=== PATIENT | male | born 1935 | race Caucasian/White ===

== ENCOUNTER 2017-03-30 21:52 | Observation (INO) | payer OTHER ==
--- NOTE | ~2017-03-30 | CN ---
Consultation Report [facility] [address] [place]. [address] NAME: IAN LACY : 36 STATUS : ADM Maricruz PAT#: [id number] AGE: 81 ADM/REG DATE : 03/30/17 MR#: [id number] REPORT SERV DATE: 03/31/17 DICTATED BY: JOSETTE FORD DATE: 03/31/17 REPORT STATUS : Draft TRANSCRIBED BY: MODLigia DATE: 03/31/17 NEUROLOGY CONSULTATION DATE OF CONSULTATION: 03/31/2017 REASON FOR CONSULTATION: TIA. HOSPITALIST: Michael Burleson M.D. HISTORY OF PRESENT ILLNESS: The patient is an 81-year-old male, who had an episode of transient aphasia, which occurred approximately three weeks ago. The patient and his had been outside cutting down moderate-size trees. They stopped to take a break and were drinking water when the patient suddenly was unable to get out words. He stated he knew what to say, but he just could not speak. This lasted approximately five minutes. During this time, the patient was alert, he was oriented, he can move all extremities. He denied any numbness or visual changes. After five minutes, his speech came back and he went about his day. Eight or nine days ago, the patient had a sudden onset of left-sided perioral numbness and left-sided numbness of his fingers. He denied any numbness anywhere else on his body. This again lasted about five minutes and then resolved. The night prior to admission, the patient had numbness in his right fingers. He had numbness in all the fingers, but none in the arm or anywhere else. He denied any weakness, he denied any speech trouble, or visual trouble. The patient decided to come in for further evaluation and treatment. When he arrived his blood pressure was somewhat elevated. He was admitted to the Clinical Decision Unit for further evaluation and treatment. His initial CT of the brain came back showing no acute abnormalities, but some old ischemic changes. The patient's blood pressure this morning was running 210/100. PAST MEDICAL HISTORY: Prostate cancer (2012), post radiation; atrial fibrillation (affirmed per loop recorder); chronic kidney disease, stage III; pneumonia which he had in 2014; GERD; proctitis (post radiation); with hematochezia, COPD, hypertension, hyperlipidemia, and basal cell carcinoma. PAST SURGICAL HISTORY: Total left knee arthroplasty, skin graft to the nose for basal cell carcinoma, and bilateral cataract extraction with lens implantation. HOME MEDICATION: Glucosamine chondroitin one tablet with breakfast, nitroglycerin 0.4 mg p.r.n., Protonix 40 mg q.a.m., and Zantac 150 mg b.i.d. ALLERGIES: ADHESIVE TAPE. SOCIAL HISTORY: The patient is . He lives with his . He has two children. He is a remote smoker, quit in 1963. He does not drink alcohol or use illicits. FAMILY HISTORY: The patient's mother at the age of 105 from "old age." His father Consultation Report [address] [address] NAME: IAN LACY : 36 STATUS : ADM Maricruz PAT#: [id number] AGE: 81 ADM/REG DATE : 03/30/17 MR#: [id number] REPORT SERV DATE: 03/31/17 DICTATED BY: JOSETTE FORD DATE: 03/31/17 REPORT STATUS : Draft TRANSCRIBED BY: CHIN DATE: 03/31/17 at age of 76 from an [place]. He has one sister who is 83 and suffers from diabetes. REVIEW OF SYSTEMS: Please refer to HPI for pertinent positives. PHYSICAL EXAMINATION: VITAL SIGNS: The patient is an 81-year-old male, who stands 5 feet 11 inches, weighs 190 pounds. He is afebrile. Heart rate 65, respiratory rate 21, O2 saturations on room air 97%, blood pressure 170/82. NEUROLOGIC: The patient is alert, he is oriented x4, pleasant, communicates appropriately. Pupils are 3 mm. PERRLA. Cranial nerves 2 through 12 are intact. Peripheral vision via confrontation is full in both ocampo. No ataxia with hejhnc-as-tkbs. No asterixis, tremor, or dysmetria. No pronator drift. Upper extremity strength is 5/5. Upper DTRs 2+ on the right, 1+ on the left. No reported sensory deficits. Lower extremities, strength is 5/5. Patellar reflexes 2+. Downgoing toes. No reported sensory deficits. The patient has good locomotion. Gait is non-ataxic. He cannot tandem, but Romberg is negative. NECK: No carotid bruits or JVD. CHEST: Lung sounds are clear. CARDIAC: Regular rate and rhythm at this point. LABORATORY DATA: CBC is normal. BMP normal. INR 1.2. Total cholesterol 177, HDL 47, LDL 102, triglycerides 142. TSH is elevated at 8.9. Chest x-ray, no acute changes. CT of the brain, no acute changes. Echocardiogram and carotid duplex study are pending. NIH stroke scale is 0. ASSESSMENT: 1. Transient ischemic attack, most likely from severe hypertension. At this point, it is imperative to keep the patient's systolic blood pressure down, but around 140-180 mmHg for optimal cerebral perfusion pressure. The patient's Lipitor will be increased to 80 mg at bedtime. His aspirin will be decreased to 81 mg daily, since he has been placed on Eliquis 5 mg b.i.d. Hopefully, the patient's loop recorder is MRI compatible. The company has been called and they are sending information. He will be sent for an MRI if possible. 2. Atrial fibrillation per loop recorder. This is being managed per Cardiology, he is now on Eliquis. 3. Hypertension, the patient is on Altace and he has p.r.n. medications ordered. His systolic blood pressure ideally should be anywhere from 140 to 180 mmHg for cerebral perfusion pressure. 4. Hypothyroidism. Again, this is managed per hospitalist team. Thank you again for including us in consultation. VANESSA/CHIN Consultation Report [address] [place]. [address] NAME: IAN LACY : 36 STATUS : ADM Maricruz PAT#: [id number] AGE: 81 ADM/REG DATE : 03/30/17 MR#: [id number] REPORT SERV DATE: 03/31/17 DICTATED BY: JOSETTE FORD DATE: 03/31/17 REPORT STATUS : Draft TRANSCRIBED BY: CHIN DATE: 03/31/17 Josette Ford DNP, ACNP-BC / [id number] CC: Terrence Oliveira M.D.
--- NOTE | ~2017-03-30 | CN ---
Consultation Report [facility] [address] [place]. [address] NAME: IAN ECHOLS : 37 STATUS : ADM Maricruz PAT#: [id number] AGE: 81 ADM/REG DATE : 03/30/17 MR#: [id number] REPORT SERV DATE: 03/31/17 DICTATED BY: JEREMIAS LEROY DATE: 03/31/17 REPORT STATUS : Draft TRANSCRIBED BY: MODL DATE: 03/31/17 CONSULTATION DATE OF CONSULTATION: 03/31/2017 REASON FOR CONSULTATION: Recurrent TIAs. HISTORY OF PRESENT ILLNESS: Mr. Echols is a pleasant 81-year-old gentleman, who formerly followed with [facility] and was lost to follow up due to insurance changes, with a history of moderate coronary artery disease (no history of intervention, no history of MT and preserved EF), hypertension, hyperlipidemia, and paroxysmal atrial fibrillation, status post implantable loop recorder approximately three years ago at [facility], who presents to [facility] with symptoms of difficulty with speech as well as right arm numbness that started yesterday evening at around 09:00 p.m. and resolved within about 5 minutes without specific intervention. He notes that he has had similar symptoms over the past three weeks occurring at about one week apart, were total of three episodes. About three weeks ago, he had an episode of similar duration with numbness around the mouth as well as left hand. Again two weeks ago, he had symptoms of difficulty with speaking and then last night his third episode. This admission is for the first time he is seeking care. He denies having any chest pains, pressures, palpitations, dizziness, or loss of consciousness with his episodes. He otherwise has no complaints. In speaking with him, he denies having any interval significant cardiovascular events since his last visit here with the [facility]. Outside of having an implantable loop recorder placed for paroxysmal atrial fibrillation, his cardiac history is unchanged. He has not been put on any blood thinner for history of atrial fibrillation. ALLERGIES: NONE. SOCIAL HISTORY: The patient lives at home with his . He denies drinking alcohol, smoking, or doing drugs. FAMILY HISTORY: Noncontributory for premature cardiovascular disease. HOME MEDICATIONS: 1. Glucosamine. 2. Sublingual nitroglycerin p.r.n. 3. Pantoprazole. 4. Ranitidine. ? incomplete home medication list. PHYSICAL EXAMINATION: VITAL SIGNS: Blood pressure 178/87, pulse 65 sinus rhythm, temperature 98.1. GENERAL: Well developed, well nourished, no acute distress. NEURO: Awake, alert and oriented x3; no focal deficits, appropriate mood. Consultation Report [facility] [id number] [place]. [address] NAME: IAN ECHOLS : 36 STATUS : ADM Maricruz PAT#: [id number] AGE: 81 ADM/REG DATE : 03/30/17 MR#: [id number] REPORT SERV DATE: 03/31/17 DICTATED BY: JEREMIAS LEROY DATE: 03/31/17 REPORT STATUS : Draft TRANSCRIBED BY: MODLigia DATE: 03/31/17 HEENT: Moist mucous membranes, anicteric sclerae, no nasal discharge. NECK: No JVD, no carotid bruit. LUNGS: Clear to auscultation bilaterally, no wheezes, rales or rhonchi. CV: Regular rhythm, normal S1/S2, no murmurs, rubs or gallops. ABD: Soft, non-tender, non-distended, no rebound or guarding. EXT: No pitting edema, normal distal pulses. SKIN: Warm, dry and intact; no rash. PERTINENT TEST FINDINGS: Potassium 4.3, creatinine 1.27. White blood cell count 6.4, hemoglobin 13.7. Troponin less than 0.02. EKG sinus rhythm at 5 beats per minute. Normal mean QRS axis. Normal intervals and no ischemic ST-T changes as well as no pathologic Q- waves. IMPRESSION AND PLAN: Mr. Echols is a pleasant 81-year-old gentleman with a history of moderate coronary disease without intervention or myocardial infarction, hypertension, hyperlipidemia, and paroxysmal atrial fibrillation, status post ILR about three years ago, who presents with recurrent transient ischemic attack symptoms over the past three weeks occurring at 1-week intervals and resolving within 5 minutes per episode, possibly concerning for cardioembolic source. I agree with plans for an echocardiogram as well as carotid Dopplers, continued cardiac telemetry, and Neurology evaluation. In addition, his loop recorder will be particularly valuable given new symptoms of recurrent transient ischemic attack and his history of atrial fibrillation. Therefore, I did not recommend removing this device at this time. Instead, I will discuss with [facility]Electrophysiology how we can have his device registered and interrogated here at the [facility] given the patient's desire to transition care here now. Otherwise, he will need to be started on standard cardiovascular medications as I do not see any of these listed on his home medication list including aspirin, statin, beta-ari at the minimum. STEFF/MODL Jeremias Leroy MD / [id number] CC: Michael Burleson M.D.
--- NOTE | ~2017-03-30 | DS ---
Discharge Summary [facility] [address] [place]. [address] NAME: IAN LACY : 36 STATUS : DIS Maricruz PAT#: [id number] AGE: 81 ADM/REG DATE : 03/30/17 MR#: [id number] REPORT SERV DATE: 04/02/17 DICTATED BY: DATE: REPORT STATUS : Draft TRANSCRIBED BY: MODL DATE: 04/01/17 ADMISSION DATE: 03/30/2017 DISCHARGE DATE: 04/01/2017 ADMISSION DIAGNOSES: 1. Recurrent transient ischemic attacks. 2. Paroxysmal atrial fibrillation with loop recorder. 3. Hypertension. 4. Hypothyroidism. 5. Chronic kidney disease stage 3. 6. Chronic obstructive pulmonary disease. CONSULTATIONS: Neurology, Josette Ford DNP and Dr. Braun. PROCEDURES AND IMAGIN. 03/30/2017, portable chest x-ray showed no acute cardiopulmonary abnormality. 2. 03/30/2017, CT of the brain without contrast showed old deep white matter ischemic changes. 3. 03/31/2017, MRI of the brain without contrast showed chronic microvascular white matter ischemic changes and minimal atrophy. 4. 03/31/2017, carotid blood flow studies showed carotids category and for normal right vertebral antegrade velocities 197 cm/second and left vertebral antegrade left subclavian velocity 109 cm/second. HOSPITAL COURSE: Please refer to Dr. Yrn Yanez's H and P dated 03/30/2017 for complete details regarding the patient's admission. In brief, the patient was admitted by Dr. Yanez for initial workup and management of recurrent TIAs with varied weakness on right or left side and occasional speech deficit. Please see consult per Dr. Jeremias Braun on 03/31/2017 as well as consultation by Josette Ford for recurrent TIAs. The patient has been having episodes of severe hypertension. The patient states his blood pressure has always been normal when he follows up with his primary care, Dr. Daniel Barajas and that he occasionally checks it at home. The patient has been placed on LAYTON inhibitor while he is here and will be discharged with ramipril 5 mg p.o. The patient has also been placed on a low-dose statin medication as well as aspirin due to his recurrent TIAs. His A1c is 5.6. His ESR is 4. His CRP has been less than 2.9. His echo has been ejection fraction 55% to 60% with mild aortic regurgitation. The patient's hypertension is under good control and orthostatics have been stable. Of note, during his stay, the patient's TSH was checked and it was 8.94. The patient has been started on Synthroid 25 mcg daily and will follow up with his PCP for monitoring. The patient has a history of CKD stage 3, and the patient's labs are at baseline. The patient has history of COPD, which has been stable during his stay. PHYSICAL EXAMINATION: HEENT: Head is atraumatic, normocephalic. Pupils are equal, round, reactive to light and accommodation. Sclerae are clear. Nonicteric. Good dentition. NECK: Supple with no obvious lymphadenopathy or thyromegaly. Neck veins are flat. CARDIAC: The patient is in a paced rhythm. No obvious murmurs, rubs, or gallops. Discharge Summary [address] [address] NAME: IAN LACY : 36 STATUS : DIS Maricruz PAT#: [id number] AGE: 81 ADM/REG DATE : 03/30/17 MR#: [id number] REPORT SERV DATE: 04/02/17 DICTATED BY: DATE: REPORT STATUS : Draft TRANSCRIBED BY: MODL DATE: 04/01/17 LUNGS: Clear anteriorly and posteriorly with normal respiratory effort. GI: Abdomen is soft and nontender with active bowel sounds in all four quadrants. No palpable organomegaly. EXTREMITIES: No significant edema, clubbing, or cyanosis. Dorsalis pedis and posterior tibial pulses are palpable bilaterally. MUSCULOSKELETAL: Moves all extremities x4. He is ambulatory without assistance. No difficulties with balance. SKIN: Skin is warm and dry with normal color and turgor. NEUROPSYCH: The patient is alert and oriented x4. Pleasant and cooperative. Cranial nerves II through XII are grossly intact. DISCHARGE MEDICATIONS: Apixaban 5 mg twice daily, aspirin 81 mg daily, atorvastatin 40 mg daily, Zantac 150 mg daily, glucosamine chondroitin one tablet daily, levothyroxine 25 mcg daily, Altace 5 mg daily, Protonix 40 mg daily, Nitrostat 0.4 mg sublingual p.r.n. for chest pain. ALLERGIES: THE PATIENT HAS NO KNOWN DRUG ALLERGIES. DISCHARGE INSTRUCTIONS: The patient is to follow up with his PCP, Dr. Daniel Barajas in 7 to 10 days. The patient is to follow up with Dr. Braun in six weeks and is to follow up with [facility] regarding his loop recorder in four weeks. If the patient should have any occurrence of repeat chest pain or neurological issues, such as speech or fainting, the patient is to follow up with his inhalation therapy aides teacher, his PCP or to present to the ER. Approximately, 25 minutes has been spent coordinating discharge care of this patient, including urys-aw-tnue encounter and summarization of the discharge. DICTATED BY: Lilo Juarez NP SLC/MODL Liol Juarez NP / [id number] CC: Terrence Hall M.D.
--- NOTE | ~2017-03-30 | HP ---
History And Physical [place] [id number] [facility] [place] [place]. [address] NAME: IAN LACY : 36 STATUS : REG ER PAT#: [id number] AGE: 81 ADM/REG DATE : 03/30/17 MR#: [id number] REPORT SERV DATE: 03/31/17 DICTATED BY: ELVER MCEKNNA DATE: 03/31/17 REPORT STATUS : Draft TRANSCRIBED BY: MODL DATE: 03/31/17 DATE OF ADMISSION: 03/30/2017 CHIEF COMPLAINT: An 81-year-old male presenting with recurrent neurological symptoms, now with transient aphasia. HISTORY OF PRESENTING ILLNESS: The patient's history was obtained through careful interview with the patient and , coupled with review of [employer] [facility] [employer] medical records. About three weeks ago, the patient had a first neurological episode, where he had dense aphasia that lasted about five minutes, but otherwise, a negative review of systems for stroke at that time. Then about eight or nine days ago, he also had about five minutes of severe left facial and left arm paresthesias without weakness and with no speech deficit at that time, all the symptoms subsided within five minutes again. Then, on the night leading up to admission, the patient had sudden right arm tingling. States "I just did not feel good" and then had dense aphasia that also lasted five minutes again and then subsided completely. There has been recent lightheadedness and orthostatics symptoms. No vertigo, no dysarthria, no double vision. The patient has had recent blurry vision, for which he has seen an track production engineer with an essentially negative eye exam except for the presence of "floaters" bilaterally. There has been no confusion. No headache. No chest pain. No back pain. No abdominal pain. No pain complaints at all. The patient has felt queasy with some nausea, but no vomiting. He has a chronic stable cough that is nonproductive. No shortness of breath though. REVIEW OF SYSTEMS: Otherwise, a 14-point review of systems was obtained and was negative. PAST MEDICAL HISTORY: 1. Prostate cancer in 2002, status post radiation. 2. A loop recorder that has been in place for three years for evaluation of intermittent palpitations. Apparently, it has been interrogated several times without evidence of atrial fibrillation or true arrhythmia. 3. Chronic kidney disease stage 3. Baseline creatinine of 1.2 to 1.3. 4. Pneumonia, 2015. 5. Negative catheterization of the heart in 2011. 6. Gastroesophageal reflux disorder, seen by Dr. Morel. 7. Radiation proctitis with hematochezia. 8. COPD. History And Physical [address] [address] NAME: IAN LACY : 36 STATUS : REG ER PAT#: [id number] AGE: 81 ADM/REG DATE : 03/30/17 MR#: [id number] REPORT SERV DATE: 03/31/17 DICTATED BY: ELVER MCKENNA DATE: 03/31/17 REPORT STATUS : Draft TRANSCRIBED BY: CHIN DATE: 03/31/17 PAST SURGICAL HISTORY: 1. Left knee surgery. 2. Skin graft to the nose. ALLERGIES: ADHESIVE. SOCIAL HISTORY: Quit smoking remotely, but used to smoke two packs per day and chew tobacco. No alcohol use. Is to his current since 1997. They live in [place], [place]. The patient is retired from [employer]. He has a son and daughter who live locally. FAMILY HISTORY: Father with heart disease. Mother of "old age." A strong family history of diabetes. CURRENT MEDICATIONS: Unknown at this time. We have requested a medication list from Pharmacy. PHYSICAL EXAMINATION: VITAL SIGNS: Temperature 98.5, pulse 66, blood pressure 237/98, respiratory rate 18, and O2 saturation 98% on room air. Blood pressure actually improved to consistently systolic 160s to 170s while in the emergency department after the patient rested and was signed in. GENERAL: A pleasant, cooperative male, in no evidence of acute distress. NEUROLOGICAL: Cranial nerves 2 through 12 are intact and symmetrical. The patient has 5/5 strength in upper and lower extremities that are symmetrical. HEENT: Pupils equal, round, and reactive to light. No conjunctival pallor. No scleral icterus. Nares are patent. Oropharynx is clear of obstruction. Moist mucous membranes. NECK: Trachea midline. No thyromegaly. LYMPH: No cervical lymphadenopathy. No supraclavicular lymphadenopathy. RESPIRATORY: Clear to auscultation at bases. No wheezes, rales, or rhonchi. Normal respiratory effort. CARDIOVASCULAR: Regular rate and rhythm. No murmurs, rubs, or gallops. No extremity edema is appreciated. ABDOMEN: Soft, nontender, nondistended. Normal bowel sounds auscultated throughout. No hepatosplenomegaly. DERMATOLOGICAL: Warm and dry extremities. No pallor. No cyanosis. PSYCHIATRIC: Normal affect. Good mood. Alert and oriented x3. LABORATORY DATA: White blood cell count 6.4, hemoglobin 14, hematocrit 41, platelets 250. Sodium 141, potassium 4.3, chloride 111, bicarb 24, BUN 26, creatinine 1.27, glucose 107. INR 1.1. Troponin negative. Liver enzymes, within normal limits urine. STUDIES: 1. Chest x-ray by my own evaluation shows no acute cardiopulmonary process. 2. EKG by my own evaluation shows sinus rhythm. No major abnormalities. 3. CT scan of the brain without contrast shows no acute intracranial process. ASSESSMENT AND PLAN: 1. Recurrent transient ischemic attack. Start aspirin. Obtain Neurology consult. Check History And Physical [address] [address] NAME: IAN LACY : 36 STATUS : REG ER PAT#: [id number] AGE: 81 ADM/REG DATE : 03/30/17 MR#: [id number] REPORT SERV DATE: 03/31/17 DICTATED BY: ELVER MCKENNA DATE: 03/31/17 REPORT STATUS : Draft TRANSCRIBED BY: CHIN DATE: 03/31/17 an echocardiogram. Check carotid ultrasound. Check telemetry. Check fasting lipid panel. 2. Loop recorder. Consult [facility]. The patient requests to establish care with [facility]. Interrogate loop recorder. Consider removal? 3. Chronic kidney disease stage 3. 4. Chronic obstructive pulmonary disease. Place on duo nebulizers. KPL/MODL Elver Mckenna M.D. / [id number] CC: Daniel Barajas M.D.
[~2017-03-30 21:52] MED LIST: ATV.5 PO; BEN25 PO; BREO ELLIPTA INH; C5 PO; GLUCCHONDR PO; MULTIPLE VIT PO; NITROSTAT0.4 MG SL; PCET PO; PROTONIX PO; ZANTAC150 MG PO
[2017-03-30 23:37] LABS: BASOPHILS 0.2 %; BASOPHILS ABSOLUTE 0.01 10/3/uL (0.0-0.16); EOSINOPHILS ABSOLUTE 0.32 10/3/uL (0.0-0.53); ER CBC TAT 0 Hrs 03 Mins; IMMATURE GRANULOCYTES 0.2 %; IMMATURE GRANULOCYTES ABSOLUTE 0.01 10/3/uL (0.0-0.11); LYMPHOCYTES 41.8 %; LYMPHOCYTES ABSOLUTE 2.67 10/3/uL (0.67-4.30); MEAN CORPUS HGB CONC 33.7 g/dL (32.0-36.0); MEAN CORPUSCULAR HEMOGLOB 31.3 pg (26.0-34.0); MEAN CORPUSCULAR VOLUME 92.7 fL (80-100); MEAN PLATELET VOLUME 10.6 fL (9.2-13.0); MONOCYTES 8.9 %; MONOCYTES ABSOLUTE 0.57 10/3/uL (0.21-1.20); NEUTROPHILS 43.9 %; NEUTROPHILS ABSOLUTE 2.81 10/3/uL (2.02-8.40); PLATELET COUNT 250 10/3/uL (150-400); RBC DISTRIBUTION WIDTH 13.7 % (12.0-16.0); WHITE BLOOD CELLS 6.4 10/3/uL (4.5-10.5)
[2017-03-30 23:38] LABS: HEMATOCRIT 40.6 % (40.0-51.0); HEMOGLOBIN 13.7 g/dL (13.6-17.8); MANUAL DIFF NO %; RED CELL COUNT 4.38 10/6/uL (4.7-6.1)
[2017-03-30 23:46] LABS: INTERNATIONAL NORMAL RATI 1.1 UNITS (-)
[2017-03-30 23:47] LABS: PARTIAL THROMBO TIME 32.6 SEC (22.5-37.2)
[2017-03-30 23:51] LABS: PROTIME (NOT ORD) 13.8 SEC (12.0-14.5)
[2017-03-30 23:59] LABS: BUN (BLOOD UREA NITROGEN) 26 MG/DL (6-23); CALCIUM, SERUM 9.1 MG/DL (8.5-10.4); CHLORIDE, SERUM 111 MMOL/L (96-112); CO2 (CARBON DIOXIDE) 24 MMOL/L (24-34); CREATININE 1.27 MG/DL (0.70-1.30); GFR AFRICAN AMERICAN 61 ML/MIN (>=60); GFR NON AFRICAN AMERICAN 53 ML/MIN (>=60); SGPT(ALT) 25 U/L (5-65); SODIUM, SERUM 141 MMOL/L (135-148); TOTAL BILIRUBIN 0.4 MG/DL (0-1.2); TOTAL PROTEIN 7.7 G/DL (6.0-8.5); TROPONIN I <0.02 NG/ML (<0.05)
[2017-03-31 00:02] LABS: A/G RATIO 1.1 (0.7-1.9); ALKALINE PHOSPHATASE 118 U/L (45-117); GLOBULIN 3.7 G/DL (2.5-4.1); GLUCOSE, SERUM 107 MG/DL (60-99); POTASSIUM, SERUM 4.3 MMOL/L (3.5-5.3); SGOT(AST) 35 U/L (5-40)
[2017-03-31 08:45] LABS: BASOPHILS 0.1 %; BASOPHILS ABSOLUTE 0.01 10/3/uL (0.0-0.16); EOSINOPHILS 3.3 %; EOSINOPHILS ABSOLUTE 0.24 10/3/uL (0.0-0.53); HEMATOCRIT 40.3 % (40.0-51.0); HEMOGLOBIN 13.9 g/dL (13.6-17.8); IMMATURE GRANULOCYTES 0.4 %; IMMATURE GRANULOCYTES ABSOLUTE 0.03 10/3/uL (0.0-0.11); LYMPHOCYTES 34.6 %; MEAN CORPUS HGB CONC 34.5 g/dL (32.0-36.0); MEAN CORPUSCULAR HEMOGLOB 31.7 pg (26.0-34.0); MEAN CORPUSCULAR VOLUME 91.8 fL (80-100); MEAN PLATELET VOLUME 10.2 fL (9.2-13.0); MONOCYTES 8.2 %; MONOCYTES ABSOLUTE 0.59 10/3/uL (0.21-1.20); NEUTROPHILS 53.4 %; NEUTROPHILS ABSOLUTE 3.85 10/3/uL (2.02-8.40); PLATELET COUNT 231 10/3/uL (150-400); RBC DISTRIBUTION WIDTH 13.7 % (12.0-16.0); RED CELL COUNT 4.39 10/6/uL (4.7-6.1); WHITE BLOOD CELLS 7.2 10/3/uL (4.5-10.5)
[2017-03-31 08:46] LABS: MANUAL DIFF NO %
[2017-03-31 08:50] LABS: INTERNATIONAL NORMAL RATI 1.2 UNITS (-); PARTIAL THROMBO TIME 33.1 SEC (22.5-37.2); PROTIME (NOT ORD) 14.6 SEC (12.0-14.5)
[2017-03-31 09:17] LABS: A/G RATIO 1.2 (0.7-1.9); ALBUMIN 4.1 G/DL (3.5-5.0); ALKALINE PHOSPHATASE 109 U/L (45-117); CHLORIDE, SERUM 112 MMOL/L (96-112); CHOL/HDL RATIO(NOT ORDER) 3.8 (0-5); CHOLESTEROL 177 MG/DL (< 200); CO2 (CARBON DIOXIDE) 20 MMOL/L (24-34); CPK (IF ELEVATED MB BANDS) 135 U/L (0-200); GFR AFRICAN AMERICAN 60 ML/MIN (>=60); GFR NON AFRICAN AMERICAN 52 ML/MIN (>=60); GLOBULIN 3.5 G/DL (2.5-4.1); GLUCOSE, SERUM 88 MG/DL (60-99); HDL CHOLESTEROL 47 MG/DL (> 39); LDL CHOLESTEROL 102 MG/DL (< 130); NON-HDL CHOLESTEROL 130 MG/DL (< 160); POTASSIUM, SERUM 4.5 MMOL/L (3.5-5.3); SGPT(ALT) 24 U/L (5-65); SODIUM, SERUM 139 MMOL/L (135-148); TOTAL BILIRUBIN 0.5 MG/DL (0-1.2); TOTAL PROTEIN 7.6 G/DL (6.0-8.5); TRIGLYCERIDE 142 MG/DL (< 150); TROPONIN I <0.02 NG/ML (<0.05)
[2017-03-31 09:18] LABS: BUN (BLOOD UREA NITROGEN) 21 MG/DL (6-23)
[2017-03-31 09:19] LABS: SGOT(AST) 30 U/L (5-40)
[2017-04-01] MEDS ORDERED: ELIQUIS 5 MG TAB5 MG PO (12:39)
[2017-04-01] MEDS ORDERED: HALF81 PO (12:39)
[2017-04-01] MEDS ORDERED: LIPITOR40 PO (12:39)
[2017-04-01] MEDS ORDERED: LEVOTHROID25 MCG PO (12:41)
[2017-04-01] MEDS ORDERED: ALTA5 PO (12:42)
== END 2017-04-01 13:11 | disposition home or self-care (01) ==
LOC: ER 21:52 → CDU1 23:59 → CDU2 03-31 04:44
PROVIDERS: Hospitalist
DX: G45.9 Transient cerebral ischemic attack, unspecified (principal); I48.0 Paroxysmal atrial fibrillation; E03.9 Hypothyroidism, unspecified; I12.9 Hypertensive chronic kidney disease with stage 1 through stage 4 chronic kidney disease, or unspecified chronic kidney disease; N18.3 Chronic kidney disease, stage 3 (moderate); J44.9 Chronic obstructive pulmonary disease, unspecified; K21.9 Gastro-esophageal reflux disease without esophagitis; Z79.82 Long term (current) use of aspirin; Z79.899 Other long term (current) drug therapy; Z98.890 Other specified postprocedural states; Z87.891 Personal history of nicotine dependence; Z82.49 Family history of ischemic heart disease and other diseases of the circulatory system; Z83.3 Family history of diabetes mellitus; Z96.652 Presence of left artificial knee joint; Z98.41 Cataract extraction status, right eye; Z98.42 Cataract extraction status, left eye
CPT/HCPCS: 70450; 70551; 71010; 80053; 80061; 82550; 82962; 83036; 83735; 83880; 84443; 84484; 85025; 85610; 85652; 85730; 86140; 93005; 93288; 93306; 93880; 94640; 96374; 99285; A9270-GY; G0378

== ENCOUNTER 2017-04-06 08:16 | Emergency (ER) | payer OTHER ==
[~2017-04-06 08:16] MED LIST changes: +ALTA5 PO; +ELIQUIS 5 MG TAB5 MG PO; +HALF81 PO; +LEVOTHROID25 MCG PO; +LIPITOR40 PO
[2017-04-06 10:22] LABS: BASOPHILS 0 %; EOSINOPHILS 4.9 %; EOSINOPHILS ABSOLUTE 0.26 10/3/uL (0.0-0.53); ER CBC TAT 0 Hrs 03 Mins; HEMATOCRIT 40.6 % (40.0-51.0); HEMOGLOBIN 13.5 g/dL (13.6-17.8); IMMATURE GRANULOCYTES 0.2 %; IMMATURE GRANULOCYTES ABSOLUTE 0.01 10/3/uL (0.0-0.11); LYMPHOCYTES ABSOLUTE 1.61 10/3/uL (0.67-4.30); MEAN CORPUS HGB CONC 33.3 g/dL (32.0-36.0); MEAN CORPUSCULAR HEMOGLOB 31.2 pg (26.0-34.0); MEAN CORPUSCULAR VOLUME 93.8 fL (80-100); MEAN PLATELET VOLUME 10.4 fL (9.2-13.0); MONOCYTES 12.3 %; MONOCYTES ABSOLUTE 0.66 10/3/uL (0.21-1.20); NEUTROPHILS 52.6 %; NEUTROPHILS ABSOLUTE 2.82 10/3/uL (2.02-8.40); PLATELET COUNT 231 10/3/uL (150-400); RBC DISTRIBUTION WIDTH 13.9 % (12.0-16.0); RED CELL COUNT 4.33 10/6/uL (4.7-6.1); WHITE BLOOD CELLS 5.4 10/3/uL (4.5-10.5)
[2017-04-06 10:24] LABS: MANUAL DIFF NO %
[2017-04-06 10:31] LABS: INTERNATIONAL NORMAL RATI 1.1 UNITS (-); PARTIAL THROMBO TIME 33.9 SEC (22.5-37.2)
[2017-04-06 10:42] LABS: BUN (BLOOD UREA NITROGEN) 27 MG/DL (6-23); CALCIUM, SERUM 9.3 MG/DL (8.5-10.4); CHEST PAIN PROFILE TAT 0 Hrs 15 Mins; CHLORIDE, SERUM 112 MMOL/L (96-112); CO2 (CARBON DIOXIDE) 24 MMOL/L (24-34); CREATININE 1.26 MG/DL (0.70-1.30); GFR AFRICAN AMERICAN 62 ML/MIN (>=60); GFR NON AFRICAN AMERICAN 54 ML/MIN (>=60); GLUCOSE, SERUM 90 MG/DL (60-99); POTASSIUM, SERUM 4.8 MMOL/L (3.5-5.3); SODIUM, SERUM 142 MMOL/L (135-148); TROPONIN I <0.02 NG/ML (<0.05)
== END 2017-04-06 11:54 | disposition home or self-care (01) ==
LOC: ER 08:16
PROVIDERS: Emergency Medicine
DX: G45.9 Transient cerebral ischemic attack, unspecified (principal); I48.91 Unspecified atrial fibrillation; I12.9 Hypertensive chronic kidney disease with stage 1 through stage 4 chronic kidney disease, or unspecified chronic kidney disease; N18.9 Chronic kidney disease, unspecified; J44.9 Chronic obstructive pulmonary disease, unspecified; F41.9 Anxiety disorder, unspecified; Z91.048 Other nonmedicinal substance allergy status; Z79.82 Long term (current) use of aspirin; Z79.899 Other long term (current) drug therapy
CPT/HCPCS: 70450; 71010; 80048; 82962; 83735; 84484; 85025; 85610; 85730; 93005; 99285; A9270-GY

== ENCOUNTER 2017-06-28 09:13 | Inpatient (IN) | payer OTHER ==
[~2017-06-28] VITALS: Ht 180.3 cm; Wt 86.4 kg
--- NOTE | ~2017-06-28 | CN ---
Consultation Report [address] [address] NAME: IAN LACY : 36 STATUS : ADM IN PAT#: [id number] AGE: 81 ADM/REG DATE : 06/28/17 MR#: [id number] REPORT SERV DATE: 06/29/17 DICTATED BY: ARMIDA SEGURA DATE: 06/29/17 REPORT STATUS : Draft TRANSCRIBED BY: MODL DATE: 06/29/17 CONSULTATION DATE OF CONSULTATION: 06/29/2017 LOCATION: Bed 6121. REASON FOR CONSULTATION: I am asked to see this gentleman with dyspepsia. HISTORY OF PRESENT ILLNESS: This 81-year-old gentleman has numerous medical problems. He was admitted at this time with dyspnea and chest pain. Initial workup showed a CT scan, which showed partial gastric outlet obstruction. He has had NG decompression, and feels somewhat better. He currently denies any abdominal pain or nausea. He has had occasional constipation, but denies blood in the stools. PAST MEDICAL HISTORY: Remarkable for atrial fibrillation requiring Eliquis, as well as prostate cancer, COPD, and a history of sarcoidosis. He reports having had panendoscopy and dilatation by Dr. Morel, and GE reflux disease. PHYSICAL EXAMINATION: CHEST: Clear. CARDIAC: Regular rhythm. ABDOMEN: Soft and nontender. Bowel sounds normal. No palpable mass. IMPRESSION: 1. Dyspepsia. 2. Abnormal CT scan raising the question of gastric outlet obstruction. PLAN: Dr. Morel will follow in the next 24 hours. We will make him n.p.o. in the meantime in anticipation of possible endoscopy. Thank you for allowing me to see this gentleman. SANDRA/CHIN Armida Segura M.D. / [id number] Consultation Report [address] [address] NAME: IAN LACY : 36 STATUS : ADM IN PAT#: [id number] AGE: 81 ADM/REG DATE : 06/28/17 MR#: [id number] REPORT SERV DATE: 06/29/17 DICTATED BY: ARMIDA SEGURA DATE: 06/29/17 REPORT STATUS : Draft TRANSCRIBED BY: CHIN DATE: 06/29/17 CC: LORENA VALE M.D.
--- NOTE | ~2017-06-28 | DS ---
Discharge Summary [facility] [address] [place]. [address] NAME: IAN LACY : 37 STATUS : DIS IN PAT#: [id number] AGE: 81 ADM/REG DATE : 06/28/17 MR#: [id number] REPORT SERV DATE: 07/02/17 DICTATED BY: SHAWN ACEVEDO DATE: 07/01/17 REPORT STATUS : Draft TRANSCRIBED BY: MODL DATE: 07/01/17 ADMISSION DATE: 06/28/2017 DISCHARGE DATE: 07/01/2017 DISCHARGE DIAGNOSES: 1. Gastroparesis. 2. Gastroesophageal reflux disease. 3. Chronic atrial fibrillation, on Eliquis. 4. Transient ischemic attack history. 5. Prostate cancer with radiation proctitis. 6. Pulmonary nodules of indeterminate significance. CONSULTANTS: 1. Pulmonology. 2. General Surgery. 3. GI. PROCEDURES: An EGD performed 06/30/2017 that showed a Savary-Sawant grade 1 reflux esophagitis with a normal stomach and gastroesophageal junction. The patient also had normal pylorus and normal examined duodenum. There was no evidence of gastric outlet obstruction. HOSPITAL COURSE: This is an 81-year-old gentleman who was admitted to the hospital with initial complaints of some shortness of breath. For details, please refer to excellent H and P dictated by Dr. Concepcion Griffiths. In summary, the patient was admitted for symptomatic supportive care. The patient's shortness of breath actually went away by the second day, but interestingly enough, the patient's CT showed a possible gastric outlet obstruction and that became the main stay of the hospital stay. The patient was seen by General Surgery as well as GI. General Surgery did not feel that there was any surgical fix, but GI did go ahead and scoped the patient. The CT scan showed possible gastroparesis based on fluid residuals, but it was felt more likely that he is suffering from gastroparesis. The patient did have gastroparesis evaluation done which was mildly positive. The patient is now being discharged home with instructions on gastroparetic diet, which is small frequent meals. The patient will also have a close followup with PCP as well as GI as an outpatient. DISPOSITION: Home. DISCHARGE MEDICATIONS: Protonix was changed from 40 mg once daily to 40 mg p.o. b.i.d. Otherwise, no medication changes. FOLLOWUP: 1. Please follow up with PCP in the next one to two weeks. 2. Please follow up with GI as instructed. A total of 35 minutes spent in coordinating this patient's discharge today. Discharge Summary [address] [place]. [place]. [address] NAME: IAN LACY : 36 STATUS : DIS IN PAT#: [id number] AGE: 81 ADM/REG DATE : 06/28/17 MR#: [id number] REPORT SERV DATE: 07/02/17 DICTATED BY: SHAWN ACEVEDO DATE: 07/01/17 REPORT STATUS : Draft TRANSCRIBED BY: CHIN DATE: 07/01/17 [facility] Shawn Acevedo MD / [id number] CC: MD Daniel Zuniga M.D.
--- NOTE | ~2017-06-28 | CN ---
Consultation Report [facility] [address] [place]. [address] NAME: IAN LACY : 37 STATUS : ADM IN [facility]#: [id number] AGE: 81 ADM/REG DATE : 06/28/17 MR#: [id number] REPORT SERV DATE: 06/29/17 DICTATED BY: OSMAN BLUM DATE: 06/29/17 REPORT STATUS : Draft TRANSCRIBED BY: MODL DATE: 06/29/17 SURGICAL CONSULTATION DATE OF CONSULTATION: 06/29/2017 REASON FOR CONSULTATION: Worsening dyspepsia and reflux with possible gastric outlet obstruction on CT. HISTORY OF PRESENT ILLNESS: This pleasant 81-year-old gentleman presented to the emergency department complaining of several days of worsening dyspepsia with a long history of gastroesophageal reflux disease. He denied nausea, vomiting, hematemesis, or coffee-ground emesis. He denies any constitutional symptoms. He does state that he has had intermittent constipation past several days, but is having significant flatus today. He denies any change in the caliber of stools, bright red blood per rectum, or melena. He has a history of stroke since March, but none since being on medication. He has a history of COPD and chronic reflux. PAST MEDICAL HISTORY: Hypertension, hypothyroidism, stage 3 chronic kidney disease, COPD, recurrent transient ischemic attacks, history of prostate cancer with radiation proctitis. PAST SURGICAL HISTORY: Left knee surgery, skin graft to the nails. ALLERGIES: NO KNOWN DRUG OR LATEX ALLERGIES. HE DOES HAVE AN ALLERGY TO TAPE. SOCIAL HISTORY: The patient quit smoking in 1959. Denies alcohol or illicit drug usage. He is and his daughter is at the bedside. He lives in [place]. He is retired. FAMILY HISTORY: Positive for heart disease. No history of colon or gastric cancer. REVIEW OF SYSTEMS: No headache. MEDICATIONS: Please see hospital chart. REVIEW OF SYSTEMS: No headache, blurred vision, dizziness, chest pain, shortness of breath, cough, dyspnea on exertion, syncope, palpitations, jaundice, itching, bright red blood per rectum, or melena. PHYSICAL EXAMINATION: GENERAL: Well-developed male, in no apparent distress. HEENT: Normocephalic, atraumatic. NECK: Supple. No adenopathy. CARDIOVASCULAR: Regular rate and rhythm without murmur. RESPIRATORY: Clear to auscultation. Consultation Report [facility] [address] [place]. [address] NAME: IAN LACY : 37 STATUS : ADM IN [facility]#: [id number] AGE: 81 ADM/REG DATE : 06/28/17 MR#: [id number] REPORT SERV DATE: 06/29/17 DICTATED BY: OSMAN BLUM DATE: 06/29/17 REPORT STATUS : Draft TRANSCRIBED BY: CHIN DATE: 06/29/17 ABDOMEN: Soft, nondistended, nontender. BACK: No CVA tenderness. EXTREMITIES: No clubbing, cyanosis, edema, or jaundice. LABORATORY DATA: White blood cell count 5100. IMAGING: CT scan shows contrast in the stomach with mildly distended fluid with opacified food material consistent with possible gastroparesis or partial gastric outlet obstruction without mass, no inflammatory or infectious process noted. ASSESSMENT: 1. History of gastroesophageal reflux disease with worsening dyspepsia. 2. Possible gastroparesis or partial gastric outlet obstruction on CT. 3. History of chronic atrial fibrillation, now normal sinus rhythm, on Eliquis. 4. History of transient ischemic attacks. 5. History of prostate cancer with radiation proctitis. PLAN: At this time, the patient has no indication for acute surgical intervention. He may benefit from upper and possible lower endoscopy with current symptoms on an in or outpatient basis pending evaluation per Gastroenterology. We will continue to follow the patient with you. DOROTHY/CHIN Osman Blum M.D. / [id number] CC: Terrence Porter IV, M.D. Alan Shikoh, M.D.
--- NOTE | ~2017-06-28 | EGD ---
EGD REPORT [facility] [address] [place]. [address] NAME: IAN ECHOLS : 37 STATUS : ADM IN PAT#: [id number] AGE: 81 ADM/REG DATE : 06/28/17 MR#: [id number] REPORT SERV DATE: 06/30/17 DICTATED BY: DAINA MENDEZ DATE: 06/30/17 REPORT STATUS : Draft TRANSCRIBED BY: [facility] DATE: 06/30/17 Endoscopy Center Patient Name: Ian Echols Date of : 1935 Attending MD: DAINA MENDEZ MD Procedure Date No Time: 06/30/2017 Procedure: Upper GI endoscopy Indications: Follow-up of gastro-esophageal reflux disease, Abnormal CT of the GI tract, Nausea, Regurgitation, Exclude gastric outlet obstruction Referring MD: SANDER RANDOLPH Medicines: Propofol per Anesthesia Complications: No immediate complications. Estimated blood loss: None. Procedure: Pre-Anesthesia Assessment: - After reviewing the risks and benefits, the patient was deemed in satisfactory condition to undergo the procedure. - Prior to the procedure, a History and Physical was performed, and patient medications and allergies were reviewed. The patient's tolerance of previous anesthesia was also reviewed. The risks and benefits of the procedure and the sedation options and risks were discussed with the patient. All questions were answered, and informed consent was obtained. Prior Anticoagulants: The patient has taken Eliquis, last dose was 1 day prior to procedure. ASA Grade Assessment: III - A patient with severe systemic disease. After reviewing the risks and benefits, the patient was deemed in satisfactory condition to undergo the procedure. After obtaining informed consent, the endoscope was passed under direct vision. Throughout the procedure, the patient's blood pressure, pulse, and oxygen saturations were monitored continuously. The GIF [id number] was introduced through the mouth, and advanced to the third part of duodenum. The upper GI endoscopy was accomplished without difficulty. The patient tolerated the procedure well. Findings: Savary-Saawnt Grade I (single erosion or exudate, oval or linear, single fold) esophagitis with bleeding was found. Less than 5 cc of bright red blood were seen due to the Eliquis but there was no active bleeding. The entire examined stomach and gastroesophageal junction (on retroflexion) were normal except for a few suction morales in the body of the stomach due to the NG tube. EGD REPORT [place] [address] [facility] [place]. [address] NAME: IAN ECHOLS : 37 STATUS : ADM IN [facility]#: [id number] AGE: 81 ADM/REG DATE : 06/28/17 MR#: [id number] REPORT SERV DATE: 06/30/17 DICTATED BY: DAINA MENDEZ DATE: 06/30/17 REPORT STATUS : Draft TRANSCRIBED BY: [employer] DATE: 06/30/17 The pylorus was normal and widely patent. The examined duodenum was normal. Impression: - Savary-Sawant Grade I reflux esophagitis. - Normal stomach and gastroesophageal junction. - Normal pylorus. - Normal examined duodenum. - No evidence of gastric outlet obstruction. - CT findings consistent with meal a few hours before scan but need to exclude gastroparesis. Recommendation: - [facility]. - Regular diet. - Continue present medications. - Change Protonix to 40 mg BID. - May resume Eliquis. - Do a gastric emptying study tomorrow. Procedure Code(s): --- Professional --- 91721, Esophagogastroduodenoscopy, flexible, transoral; diagnostic, including collection of specimen(s) by brushing or washing, when performed (separate procedure) Diagnosis Code(s): --- Professional --- K21.0, Gastro-esophageal reflux disease with esophagitis R93.3, Abnormal findings on diagnostic imaging of other parts of digestive tract R11.0, Nausea R11.10, Vomiting, unspecified CPT copyright 2013 [employer]. All rights reserved. The codes documented in this report are preliminary and upon drawbridge tender review may be revised to meet current compliance requirements. Attending Participation: I personally performed the entire procedure. DAINA MENDEZ MD 06/30/2017 4:49 PM This report has been signed electronically. Number of Addenda: 0 Note Initiated On: 06/30/2017 3:22 PM Scope Withdrawal Time 0 hours 0 minutes 0 seconds EGD REPORT [facility] [address] [facility] [address] NAME: IAN ECHOLS : 37 STATUS : ADM IN [facility]#: [id number] AGE: 81 ADM/REG DATE : 06/28/17 MR#: [id number] REPORT SERV DATE: 06/30/17 DICTATED BY: DAINA MENDEZ DATE: 06/30/17 REPORT STATUS : Draft TRANSCRIBED BY: [employer] DATE: 06/30/17 [address] [place] [address]
--- NOTE | ~2017-06-28 | HP ---
History And Physical [place] [address] [facility] [place]. [address] NAME: IAN ALCY : 37 STATUS : REG ER PAT#: [id number] AGE: 81 ADM/REG DATE : 06/28/17 MR#: [id number] REPORT SERV DATE: 06/28/17 DICTATED BY: ALEX HERNANDEZ DATE: 06/28/17 REPORT STATUS : Draft TRANSCRIBED BY: MODL DATE: 06/28/17 DATE OF ADMISSION: 06/28/2017 HISTORY OF PRESENT ILLNESS: The patient is a very pleasant, 81-year-old male, who presented to [facility] with a complaint of worsening. He has chronic reflux but he said for the last four days since Friday, he had more acid and he had increased burping. He did not have vomiting but he had nausea and burning sensation behind the chest. He was also complaining of intermittent abdominal discomfort and sensation of being bloated. He said that he had a bowel movement yesterday, but he was constipated. It was minimal amount of stool, small, and he was unable to completely empty his bowel. He is also complaining of some episodes of shortness of breath on walking. He says he has COPD. He has chronic cough but he has minimal amount of phlegm, which is clear. He did not have any fever. No chest pain. No severe abdominal pain. No rash. No headache. REVIEW OF SYSTEMS: All 14-point review of systems done and negative except what is stated in the history of present illness. PAST MEDICAL HISTORY: Past medical history was collected from the patient as well as from medical records. The patient has history of hypertension, hypothyroidism, chronic kidney disease stage 3, history of COPD, history of recurrent transient ischemic attacks, which he had 4th TIA. During TIAs, he had some speech changes, but he did not have any residual deficits according to the patient and his . He had paroxysmal atrial fibrillation, and he had loop recorder placement in the past. Other medical problems include history of sarcoidosis. He had recently CT scan of the chest done on 06/18/2017, by Dr. Rose, his marketing development specialist. He was found to have noncalcified pulmonary nodules, and tree-in-bud opacities and he has a followup appointment with Dr. Rose scheduled also. History of prostate cancer, treated with radiation according to the patient. History of negative heart catheterization in 2012. History of gastroesophageal reflux, followed by Dr. Morel. History of radiation proctitis with hematochezia. PAST SURGICAL HISTORY: Includes left knee surgery and skin graft to the nose. ALLERGIES: THERE ARE NO KNOWN DRUG ALLERGIES. HE HAS ALLERGY TO ADHESIVE TAPE. SOCIAL HISTORY: He quit smoking in 1959, used to smoke one pack per day. No alcohol. No recreational drug use. He is . His is at the bedside. He lives in [place], [place]. He is retired from [employer]. He has a son and daughter, who live locally. FAMILY HISTORY: Father with heart disease, at the age of 75. Mother at age of 105 of old age. CURRENT MEDICATIONS: Include albuterol two puffs inhaled as needed, Eliquis 5 mg twice a day, aspirin 81 mg daily, Lipitor 40 mg daily, vitamin D 5000 units daily, glucosamine chondroitin one tablet daily, levothyroxine 25 mg a day, Protonix 40 mg a day, Altace 5 mg a History And Physical [address] [address] NAME: IAN LACY : 37 STATUS : REG ER PAT#: [id number] AGE: 81 ADM/REG DATE : 06/28/17 MR#: [id number] REPORT SERV DATE: 06/28/17 DICTATED BY: ALEX HERNANDEZ DATE: 06/28/17 REPORT STATUS : Draft TRANSCRIBED BY: CHIN DATE: 06/28/17 day, ranitidine 150 mg p.o. at bedtime. PHYSICAL EXAMINATION: GENERAL: Well nourished, well-developed male, not in acute distress. Resting quietly. VITAL SIGNS: Blood pressure 123/70, temperature 97.9, heart rate 83, respiratory rate 20, oxygen saturation 97% on room air. HEENT: Head atraumatic, normocephalic. Conjunctivae clear. Pupils are equal and reactive to light and accommodation. Extraocular muscles are intact. NECK: Supple. Trachea is midline. No supraclavicular or cervical lymphadenopathy. LUNGS: Clear to auscultation bilaterally. Slightly decreased respiratory effort. CARDIOVASCULAR SYSTEM: Regular rate and rhythm. Point of maximal impulse not displaced. ABDOMEN: Soft, nontender, nondistended. Positive normoactive bowel sounds. No organomegaly. EXTREMITIES: No clubbing, cyanosis, or edema. SKIN: Normal color and turgor. PSYCHIATRIC: Normal mood and affect. NEUROLOGIC: Awake, alert, and oriented in time, place, and person. Muscle strength is 5/5 bilaterally on upper and lower extremities. LABORATORY RESULTS: Sodium 140, potassium 4.5, chloride 107, carbon dioxide 25, BUN 26, creatinine 1.4, blood sugar 99, ALT 40, AST 36, lipase 131, white count 5.1, hemoglobin 14, hematocrit 41, platelet count 253. I would like to mention that the patient's baseline creatinine fluctuates from 1.[address] of the abdomen and pelvis without contrast showed stomach is mildly distended and filled with opacified food material. Bowel gas pattern is unremarkable. This could be on the basis of gastroparesis or partial gastric outlet obstruction. No obstructing mass is seen. The liver and spleen are normal in size with no masses or biliary obstruction. Gallbladder with no evidence of stones. No abnormality in the pancreas noted. Aorta is normal. Kidneys with no evidence of masses. There is no evidence of inflammation. No evidence of any abscess in the region of the appendix, in the pelvis, unremarkable. IMPRESSION: Mildly distended stomach filled with opacified food material possible gastroparesis or partial gastric outlet obstruction. X-ray, acute abdominal series. Chest x-ray, no acute cardiopulmonary process, moderate gastric distention. Otherwise, normal gas pattern. Also, as I dictated above, on 06/18/[address] of the chest done outpatient by Dr. Rose, which showed noncalcified nodules 7-8 mm in the posterior medial aspect of the right upper lobe up to 3 mm in the posterior right upper lobe and up to 4 mm in lateral left upper lobe. Not appreciated since 06/22/2014. Also, there was continued tree-in-bud opacities and bronchiectasis in the right middle lobe. The tree-in-bud opacities are slightly more pronounced in the posterior lateral aspect of the right middle lobe. Findings are likely infectious or inflammatory. Stable minimal scarring in the basilar left lower lobe. No lymphadenopathy in the chest. Punctate stone in the gallbladder lumen, suggestion was a followup CT to be done. History And Physical [address] [address] NAME: IAN LACY : 37 STATUS : REG ER PAT#: [id number] AGE: 81 ADM/REG DATE : 06/28/17 MR#: [id number] REPORT SERV DATE: 06/28/17 DICTATED BY: ALEX HERNANDEZ DATE: 06/28/17 REPORT STATUS : Draft TRANSCRIBED BY: CHIN DATE: 06/28/17 ASSESSMENT AND PLAN: This is a very pleasant, 81-year-old male with a past medical history of gastroesophageal reflux disease, chronic kidney disease stage 3, history of chronic obstructive pulmonary disease, history of sarcoidosis, history of prostate cancer, history of atrial fibrillation, history of loop recorder placement chronically on Eliquis presented with. 1. Nausea, bloated sensation, and worsening acid reflux symptoms with the imaging study consistent with gastroparesis versus partial gastric obstruction. 2. Increased shortness of breath, which is likely related to his gastric outlet obstruction versus mild chronic obstructive pulmonary disease exacerbation with abnormal CT scan done recently on 06/18/2017 showing some pulmonary nodules and tree-in- bud opacification. 3. History of chronic atrial fibrillation, currently in normal sinus rhythm, on chronic Eliquis. 4. History of four TIAs in the past. We will admit the patient to cardiac telemetry bed. Regarding his partial gastric outlet obstruction versus gastroparesis, Dr. Jae Caballero called purse maker on-call for Dr. Morel, it was Dr. Christiansen who recommended nasogastric tube placement with low intermittent suction as well as Dr. Garcia, general surgeon, was consulted. He will also evaluate the patient tomorrow and Dr. Christiansen will see today. We will follow Dr. Christiansen's instruction to keep the patient n.p.o. and put an NG tube, as well as I put him on Protonix intravenously, and Dr. Christiansen will evaluate the patient today. The patient is chronically on Eliquis. If there are plans to do upper endoscopy, then GI needs to recommend when to stop Eliquis. Since the patient had four TIAs versus small strokes, his Eliquis needs to be stopped for a short period of time if endoscopy is planned. My partner, Dr. Duque will make a decision regarding this. 1. Shortness of breath. Currently, the patient does not have any shortness of breath and his oxygenation looks normal. We will give him DuoNeb breathing treatment. He had abnormal imaging of his lungs on the CT of the chest done in 06/18/2017, which shows tree-in-bud opacification and pulmonary nodules. We will consider also Pulmonology consult regarding these findings. 2. Regarding his chronic kidney disease. His creatinine is at the baseline. He will be on IV fluid hydration. 3. We will also treat him with antinausea medications and my partner will see this patient starting tomorrow morning. MG/MODL Alex Hernandez M.D. / [id number] CC: Terrence Vazquez IV, M.D. History And Physical [address] [address] NAME: IAN LACY : 37 STATUS : REG ER PAT#: [id number] AGE: 81 ADM/REG DATE : 06/28/17 MR#: [id number] REPORT SERV DATE: 06/28/17 DICTATED BY: ALEX HERNANDEZ DATE: 06/28/17 REPORT STATUS : Draft TRANSCRIBED BY: CHIN DATE: 06/28/17 Rajeev Morel M.D.
--- NOTE | ~2017-06-28 | CN ---
Consultation Report [facility] [address] [place]. [address] NAME: IAN ECHOLS : 37 STATUS : ADM IN PAT#: [id number] AGE: 81 ADM/REG DATE : 06/28/17 MR#: [id number] REPORT SERV DATE: 06/29/17 DICTATED BY: ZACHERY MUNIZ DATE: 06/29/17 REPORT STATUS : Draft TRANSCRIBED BY: MODL DATE: 06/29/17 DATE OF CONSULTATION: 06/29/2017 CHIEF COMPLAINT: Abdominal pain and a recent abnormal CT scan of the chest. HISTORY OF PRESENT ILLNESS: Mr. Ian Echols is a very pleasant 81-year-old white male with a past medical history significant for chronic reflux, hypertension, chronic kidney disease, who presents to [facility] Emergency [facility] with complaints of abdominal discomfort. It should be noted that Mr. Echols was last hospitalized in March of this year when he was treated for neurological issues, which were felt to be secondary to a transient ischemic attack. Mr. Echols has been followed for quite some time by Pulmonary Service. He was initially seen by Dr. Bach, more recently by Dr. Rose. The patient is not on any supplemental oxygen. He does have an albuterol inhaler, which he uses infrequently. The patient quit smoking quite sometime ago. He used to smoke about one pack a day for an indeterminate period of time. He largely denies symptomatology related to obstructive sleep apnea. He describes his exercise tolerance as being fairly good, being able to walk a few 100 yards before experiencing some degree of shortness of breath. Mr. Echols was seen by Dr. Bach in 2013 for a lesion in his right middle lobe. 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 As the patient was largely asymptomatic at that time, he did not receive aggressive therapy for sarcoidosis. Of note during that time, an additional nodule was appreciated in the right upper lobe. As the patient continued to have some shortness of breath, he re-presented to our clinic and was established with Dr. Rose. He has been followed with scans in regard to these right upper lobe nodule as well as a contralateral 4.19 nodule in the left. More recently, he has been experiencing dyspepsia, increased belching, and abdominal fullness. For these concerns, he presented to [facility] Emergency Room. Upon arrival, he was found to be normotensive and afebrile. He had a normal white count. His BUN is 26. His creatinine is 1.40. He underwent several imaging studies, which suggest a mildly distended stomach filled with opacified food material, suggesting possible gastroparesis or partial gastric outlet obstruction. Lung ocampo have been normal within all these leads. As the patient has had abnormal CT findings in the past, he has been referred to the Pulmonary Service for further assessment. Currently, the patient is on room air. He denies any shortness of breath. He is not coughing. He is not producing any purulent sputum. He is not wheezing. He has had no hemoptysis. He has no history of pneumonias. He has never had an exacerbation of his COPD. He has had previous pulmonary function testing that suggests that he does not have obstructive airway disease. The patient does have known hypertension and dyslipidemia. He currently denies any murmurs, Consultation Report [address] [address] NAME: IAN ECHOLS : 37 STATUS : ADM IN [facility]#: [id number] AGE: 81 ADM/REG DATE : 06/28/17 MR#: [id number] REPORT SERV DATE: 06/29/17 DICTATED BY: ZACHERY MUNIZ DATE: 06/29/17 REPORT STATUS : Draft TRANSCRIBED BY: CHIN DATE: 06/29/17 angina, or palpitations. He denies any paroxysmal nocturnal dyspnea or orthopnea. In regard to constitutional symptoms, he currently denies fever, chills, chest pain, or edema. PAST MEDICAL HISTORY: Gastroesophageal reflux disease, hypertension, hypothyroidism, chronic kidney disease, transient ischemic attacks, lung biopsy suggesting sarcoidosis, pulmonary nodules. PAST SURGICAL HISTORY: 1. Left knee surgery. 2. Skin grafts of his nose. FAMILY HISTORY: The patient denies family history of lung disease. SOCIAL HISTORY: The patient is with his currently at bedside. He previously worked at [employer]. TOBACCO/ALCOHOL: The patient quit smoking quite some time ago. He does admit to smoking at least a pack a day for an indeterminate period of time. He denies any recent alcohol or illicit drug use. MEDICATIONS: Equals albuterol MDI, apixaban 5 mg, aspirin 81 mg, atorvastatin 40 mg, levothyroxine 25 mcg, pantoprazole 40 mg, ramipril 5 mg, ranitidine 150 mg. ALLERGIES: THE PATIENT HAS KNOWN ALLERGY TO ADHESIVE TAPE. REVIEW OF SYSTEMS: A complete review of systems was performed with the pertinent positives and negatives contained within the body of the HPI. PHYSICAL EXAMINATION: VITAL SIGNS: Blood pressure is 129/64, heart rate 61, T-max is 97.4, respiratory rate is 18, and SpO2 is 97% on room air. GENERAL: Mr. Ian Echols is a very pleasant 81-year-old white male, who is not currently exhibiting any signs of acute distress. SKIN: With appropriate texture and turgor. No rashes, lesions, or ulcers. HEENT: Head, skull is normocephalic and atraumatic. Eyes, sclerae anicteric. Ears, auricles and tragus without pain to palpation. Nose, bilateral nasal patency. Throat, dentition noted. NECK: Supple. Trachea midline. THORAX/LUNGS: Clear breath sounds throughout. ABDOMEN: Nondistended and nontender. PERIPHERAL VASCULAR: No edema or varicosities. MUSCULOSKELETAL: Full AROM and PROM in all joints. Consultation Report [address] [place]. [address] NAME: IAN ECHOLS : 37 STATUS : ADM IN [facility]#: [id number] AGE: 81 ADM/REG DATE : 06/28/17 MR#: [id number] REPORT SERV DATE: 06/29/17 DICTATED BY: ZACHERY MUNIZ DATE: 06/29/17 REPORT STATUS : Draft TRANSCRIBED BY: MODLigia DATE: 06/29/17 NEUROLOGIC: Cranial nerves 2 through 12 grossly intact. PSYCHIATRIC: The patient is alert and oriented x3. ACCESSORY DATA: Reveals a procalcitonin of 0.05. White blood cell count is 5200, hemoglobin and hematocrit are 12.7 and 38.8. Chest x-ray is negative for any acute pulmonary process. CT of the abdomen reveals possible gastroparesis or partial outlet obstruction. IMPRESSION: 1. Abdominal discomfort. 2. Atrial fibrillation. 3. History of transient ischemic attacks. 4. Pulmonary nodules. PLAN: The patient has had a recent scan, which seemingly demonstrates some degree of stability within these nodules. That being said, he does have an outpatient followup appointment with Dr. Rose on 07/02. We will certainly encourage him to keep this appointment. Should his recent hospitalization require rescheduling for outpatient followup, we will certainly take care of this for him. The aforementioned impression and plan have been discussed with Dr. Mckeon, who will follow further recommendations. We thank you for this consult and look forward to participating in the care of Ian Echols. GBS/MODL Zachery Muniz PA-C / [id number] CC: LORENA Barajas M.D.
[2017-06-28 10:04] LABS: BASOPHILS 0 %; HEMATOCRIT 41.4 % (40.0-51.0); IMMATURE GRANULOCYTES 0.2 %; IMMATURE GRANULOCYTES ABSOLUTE 0.01 10/3/uL (0.0-0.11); LYMPHOCYTES 26.4 %; LYMPHOCYTES ABSOLUTE 1.34 10/3/uL (0.67-4.30); MANUAL DIFF NO %; MEAN CORPUS HGB CONC 33.8 g/dL (32.0-36.0); MEAN CORPUSCULAR HEMOGLOB 32.1 pg (26.0-34.0); MEAN PLATELET VOLUME 9.9 fL (9.2-13.0); MONOCYTES 10.8 %; MONOCYTES ABSOLUTE 0.55 10/3/uL (0.21-1.20); NEUTROPHILS 60.6 %; NEUTROPHILS ABSOLUTE 3.08 10/3/uL (2.02-8.40); PLATELET COUNT 253 10/3/uL (150-400); RBC DISTRIBUTION WIDTH 13.3 % (12.0-16.0); RED CELL COUNT 4.36 10/6/uL (4.7-6.1); WHITE BLOOD CELLS 5.1 10/3/uL (4.5-10.5)
[2017-06-28 10:21] LABS: A/G RATIO 1.1 (0.7-1.9); ALBUMIN 4.1 G/DL (3.5-5.0); ALKALINE PHOSPHATASE 113 U/L (45-117); BUN (BLOOD UREA NITROGEN) 26 MG/DL (6-23); CALCIUM, SERUM 9.1 MG/DL (8.5-10.4); CHLORIDE, SERUM 107 MMOL/L (96-112); CO2 (CARBON DIOXIDE) 25 MMOL/L (24-34); GFR AFRICAN AMERICAN 55 ML/MIN (>=60); GFR NON AFRICAN AMERICAN 47 ML/MIN (>=60); GLOBULIN 3.7 G/DL (2.5-4.1); GLUCOSE, SERUM 99 MG/DL (60-99); POTASSIUM, SERUM 4.5 MMOL/L (3.5-5.3); SGOT(AST) 36 U/L (5-40); SGPT(ALT) 40 U/L (5-65); SODIUM, SERUM 140 MMOL/L (135-148); TOTAL BILIRUBIN 0.5 MG/DL (0-1.2); TOTAL PROTEIN 7.8 G/DL (6.0-8.5)
[2017-06-28] MEDS ORDERED: PROAIR HFA INH (12:48)
[2017-06-28] MEDS ORDERED: D 5000 PO (12:48)
[2017-06-28 19:30] LABS: PROCALCITONIN <0.05 ng/mL (<0.5)
[2017-06-28 20:37] LABS: FOLATE 11.2 NG/ML (>5.2)
[2017-06-29 06:06] LABS: HEMATOCRIT 38.8 % (40.0-51.0); HEMOGLOBIN 12.7 g/dL (13.6-17.8); MEAN CORPUS HGB CONC 32.7 g/dL (32.0-36.0); MEAN CORPUSCULAR HEMOGLOB 31.9 pg (26.0-34.0); MEAN CORPUSCULAR VOLUME 97.5 fL (80-100); MEAN PLATELET VOLUME 10.7 fL (9.2-13.0); PLATELET COUNT 204 10/3/uL (150-400); RBC DISTRIBUTION WIDTH 13.5 % (12.0-16.0); RED CELL COUNT 3.98 10/6/uL (4.7-6.1); WHITE BLOOD CELLS 5.2 10/3/uL (4.5-10.5)
[2017-06-29 06:10] LABS: MANUAL DIFF YES %
[2017-06-29 06:17] LABS: CALCIUM, SERUM 8.4 MG/DL (8.5-10.4); CHLORIDE, SERUM 112 MMOL/L (96-112); CREATININE 1.19 MG/DL (0.70-1.30); GFR AFRICAN AMERICAN 66 ML/MIN (>=60); GFR NON AFRICAN AMERICAN 57 ML/MIN (>=60); GLUCOSE, SERUM 86 MG/DL (60-99); SODIUM, SERUM 140 MMOL/L (135-148); TROPONIN I <0.02 NG/ML (<0.05)
[2017-06-29 06:20] LABS: BUN (BLOOD UREA NITROGEN) 21 MG/DL (6-23); CO2 (CARBON DIOXIDE) 20 MMOL/L (24-34); POTASSIUM, SERUM 4.6 MMOL/L (3.5-5.3)
[2017-06-29 06:52] LABS: BAND NEUTROPHILS 2 %; EOSINOPHILS 2 %; LYMPHOCYTES 31 %; LYMPHOCYTES ABSOLUTE (CALC) 1.35 10/3/uL (0.67-4.30); MONOCYTES 9 %; MONOCYTES ABSOLUTE (CALC) 0.47 10/3/uL (0.21-1.20); NEUTROPHILS ABSOLUTE (CALC) 3.28 10/3/uL (2.02-8.40); SEGMENTED NEUTROPHIL (0) 56 %; TOTAL NUCLEATED CELLS 100
[2017-06-29 06:53] LABS: PLATELET ESTIMATE ADQ (ADEQUATE); RBC MORPHOLOGY NORM (NORMAL)
[2017-06-30 12:55] LABS: BASOPHILS 0.1 %; BASOPHILS ABSOLUTE 0.01 10/3/uL (0.0-0.16); EOSINOPHILS 0.9 %; EOSINOPHILS ABSOLUTE 0.08 10/3/uL (0.0-0.53); HEMOGLOBIN 13.4 g/dL (13.6-17.8); IMMATURE GRANULOCYTES 0.2 %; IMMATURE GRANULOCYTES ABSOLUTE 0.02 10/3/uL (0.0-0.11); LYMPHOCYTES ABSOLUTE 1.53 10/3/uL (0.67-4.30); MEAN CORPUS HGB CONC 33.5 g/dL (32.0-36.0); MEAN CORPUSCULAR HEMOGLOB 31.9 pg (26.0-34.0); MEAN CORPUSCULAR VOLUME 95.2 fL (80-100); MEAN PLATELET VOLUME 10.2 fL (9.2-13.0); MONOCYTES 7.9 %; MONOCYTES ABSOLUTE 0.67 10/3/uL (0.21-1.20); NEUTROPHILS 72.9 %; NEUTROPHILS ABSOLUTE 6.19 10/3/uL (2.02-8.40); PLATELET COUNT 212 10/3/uL (150-400); RBC DISTRIBUTION WIDTH 13.5 % (12.0-16.0)
[2017-06-30 12:57] LABS: MANUAL DIFF NO %; WHITE BLOOD CELLS 8.5 10/3/uL (4.5-10.5)
[2017-06-30 13:05] LABS: INTERNATIONAL NORMAL RATI 1.5 UNITS (-); PARTIAL THROMBO TIME 41.6 SEC (22.5-37.2)
[2017-06-30 13:09] LABS: PROTIME (NOT ORD) 17.9 SEC (12.0-14.5)
[2017-06-30 13:10] LABS: ALBUMIN 3.5 G/DL (3.5-5.0); ALKALINE PHOSPHATASE 99 U/L (45-117); BUN (BLOOD UREA NITROGEN) 19 MG/DL (6-23); CALCIUM, SERUM 8.9 MG/DL (8.5-10.4); CHLORIDE, SERUM 112 MMOL/L (96-112); CO2 (CARBON DIOXIDE) 20 MMOL/L (24-34); CREATININE 1.17 MG/DL (0.70-1.30); GFR AFRICAN AMERICAN 68 ML/MIN (>=60); GFR NON AFRICAN AMERICAN 59 ML/MIN (>=60); GLOBULIN 3.5 G/DL (2.5-4.1); GLUCOSE, SERUM 67 MG/DL (60-99); POTASSIUM, SERUM 4.5 MMOL/L (3.5-5.3); SGOT(AST) 25 U/L (5-40); SGPT(ALT) 26 U/L (5-65); SODIUM, SERUM 141 MMOL/L (135-148); TOTAL BILIRUBIN 0.6 MG/DL (0-1.2)
== END 2017-07-01 17:52 | disposition home or self-care (01) | DRG 392 ==
LOC: ER 09:13 → 6NO 15:56
PROVIDERS: Hospitalist
DX: K31.84 Gastroparesis (principal); I48.2 Chronic atrial fibrillation; D86.9 Sarcoidosis, unspecified; K22.8 Other specified diseases of esophagus; J44.9 Chronic obstructive pulmonary disease, unspecified; K21.0 Gastro-esophageal reflux disease with esophagitis; E03.9 Hypothyroidism, unspecified; K62.7 Radiation proctitis; I12.9 Hypertensive chronic kidney disease with stage 1 through stage 4 chronic kidney disease, or unspecified chronic kidney disease; N18.3 Chronic kidney disease, stage 3 (moderate); R91.8 Other nonspecific abnormal finding of lung field; Z86.73 Personal history of transient ischemic attack (TIA), and cerebral infarction without residual deficits; Z85.46 Personal history of malignant neoplasm of prostate; Z87.891 Personal history of nicotine dependence; Z79.02 Long term (current) use of antithrombotics/antiplatelets; T45.525A Adverse effect of antithrombotic drugs, initial encounter
CPT/HCPCS: 74000; 74022; 74176; 78264; 80048; 80053; 82607; 82746; 82962; 83690; 83735; 84145; 84443; 84484; 85025; 85610; 85730; 93005; 94640; 99285; A9270-GY; A9541; C9113; J2405